=== PATIENT | male | born 1955 | race Caucasian/White ===

== ENCOUNTER 2019-01-09 09:45 | Emergency (ER) | payer OTHER ==
[2019-01-09 09:55] VITALS: BMI 34.0
--- NOTE | 2019-01-09 10:19 | PDOC ---
History of Present Illness <Valorie Auguste - Last Filed: 01/09/19 13:20> <Tana Espana - Last Filed: 01/09/19 17:09> - General Chief Complaint: Back Pain Stated Complaint: LWR BACK PAIN Time Seen by Provider: 01/09/19 10:15 Past History <Valorie Auguste - Last Filed: 01/09/19 13:20> - Past Medical History Cardiac Disorders: Yes (IRREGULAR HEART BEAT, PVC) COPD: No GI Disorders: Yes (GERD) HTN: Yes - Surgical History Appendectomy: Yes - Suicide/Smoking/Psychosocial Hx Smoking Status: No Smoking History: Never smoked Have you smoked in the past 12 months: No Number of Cigarettes Smoked Daily: 0 Hx Alcohol Use: No Drug/Substance Use Hx: No Substance Use Type: None Hx Substance Use Treatment: No <Tana Espana - Last Filed: 01/09/19 17:09> - Past Medical History Allergies/Adverse Reactions: Allergies Allergy/AdvReac Type Severity Reaction Status Date / Time No Known Allergies Allergy Verified 01/09/19 09:55 Home Medications: Ambulatory Orders Atenolol [Tenormin -] 25 mg PO BID 04/26/16 Ranitidine HCl [Zantac] 150 mg PO BID 04/26/16 Tamsulosin HCl [Flomax] 0.4 mg PO DAILY 04/26/16 Folic Acid 0.8 mg PO DAILY 01/09/19 Omeprazole 10 mg PO DAILY 01/09/19 Rosuvastatin Calcium [Crestor] 5 mg PO DAILY 01/09/19 *Physical Exam - Vital Signs Last Vital Signs Temp Pulse Resp BP Pulse Ox 98.4 F 56 L 18 160/98 96 01/09/19 13:00 01/09/19 13:00 01/09/19 09:51 01/09/19 13:00 01/09/19 13:00 <Valorie Auguste - Last Filed: 01/09/19 13:20> - Vital Signs Last Vital Signs Temp Pulse Resp BP Pulse Ox 98.2 F 67 18 139/76 97 01/09/19 09:51 01/09/19 09:51 01/09/19 09:51 01/09/19 09:51 01/09/19 09:51 <Tana Espana - Last Filed: 01/09/19 17:09> ED Treatment Course - LABORATORY CBC & Chemistry Diagram: 01/09/19 10:57 01/09/19 10:53 - ADDITIONAL ORDERS Additional order review: Laboratory Results 01/09/19 01/09/19 11:15 10:53 Sodium 142 Potassium 4.4 Chloride 107 Carbon Dioxide 28 Anion Gap 7 L BUN 13.8 Creatinine 1.2 Est GFR (CKD-EPI)AfAm 74.14 Est GFR (CKD-EPI)NonAf 63.97 Random Glucose 104 Calcium 9.1 Total Bilirubin 0.4 AST 18 ALT 34 Alkaline Phosphatase 73 Total Protein 7.3 Albumin 3.8 Urine Color Yellow Urine Appearance Clear Urine pH 7.0 Ur Specific [place] 1.012 Urine Protein Negative Urine Glucose (UA) Negative Urine Ketones Negative Urine Blood Negative Urine Nitrite Negative Urine Bilirubin Negative Urine Urobilinogen 0.2 Ur Leukocyte Esterase Negative 01/09/19 10:57 RBC 5.20 MCV 85.4 MCHC 33.6 RDW 13.4 MPV 8.2 Neutrophils % 72.5 Lymphocytes % 8.7 Monocytes % 5.8 Eosinophils % 12.4 H Basophils % 0.6 - Medications Given in the ED: ED Medications Discontinued Medications Generic Name Dose Route Start Last Admin Trade Name Albertoq PRN Reason Stop Dose Admin Acetaminophen 1,000 mg 01/09/19 10:51 01/09/19 11:31 Ofirmev Injection - IVPB 01/09/19 10:52 1,000 mg ONCE ONE Administration <Valorie Auguste - Last Filed: 01/09/19 13:20> - LABORATORY CBC & Chemistry Diagram: 01/09/19 10:57 01/09/19 10:53 <Tana Espana - Last Filed: 01/09/19 17:09> Medical Decision Making - Medical Decision Making 01/09/19 10:51 HPI 63 year old man with a history of BPH, Shipman's esophagus, PVCs who presents with constipation and constant R lower back pain radiating to the groin described as dull and achy rated 8-9/10 that started 4 days ago after a routine colonoscopy. The patient took colace yesterday without a bowel movement. He states the pain gets worse when he moves. The patient denies any fever, nausea, vomiting, abdominal pain, chest pain, shortness of breath. He notes he has some intermittent dysuria. He has no other complaints. PMHX: as in HPI PSHX: vocal cord polyp removal, appendectomy Meds: atenolol, crestor ROS GENERAL/CONSTITUTIONAL: No fever or chills. No weakness. HEAD, EYES, EARS, NOSE AND THROAT: No change in vision. No ear pain or discharge. No sore throat. CARDIOVASCULAR: No chest pain or shortness of breath RESPIRATORY: No cough, wheezing, or hemoptysis. GASTROINTESTINAL: No nausea, vomiting, diarrhea GENITOURINARY: No frequency, or change in urination. MUSCULOSKELETAL: No joint or muscle swelling or pain. No neck pain SKIN: No rash NEUROLOGIC: No headache, vertigo, loss of consciousness, or change in strength/ sensation. PE GENERAL: Awake, alert, and fully oriented, in no acute distress HEAD: No signs of trauma, normocephalic, atraumatic EYES: EOMI, sclera anicteric, conjunctiva clear ENT: oropharynx clear without exudates. Moist mucosa NECK: Normal ROM, supple LUNGS: No distress, speaks full sentences, clear to auscultation bilaterally HEART: Regular rate and rhythm, normal S1 and S2, no murmurs, rubs or gallops, peripheral pulses normal and equal bilaterally. ABDOMEN: Soft, nontender, normoactive bowel sounds. No guarding, no rebound. No masses BACK: R sided CVA tenderness EXTREMITIES : Normal inspection, Normal range of motion, no edema. No clubbing or cyanosis. NEUROLOGICAL: Cranial nerves II through XII grossly intact. Normal speech, no focal sensorimotor deficits SKIN: Warm, Dry, normal turgor, no rashes or lesions noted MDM 63 year old man with a history of BPH, Shipman's esophagus, PVCs who presents with constipation and constant R lower back pain radiating to the groin described as dull and achy rated 8-9/10 that started 4 days ago after a routine colonoscopy. DDX including but not limited to: constipation vs msk pain r/o nephrolithiasis r/o perforation W/U: - cbc, cmp, ua, ucx TX: - ivf, tylenol ED Course: labwork and imagign unremarkable patient D/C with bowel regimen Tana Espana, PGY2 Emergency Medicine <Tana Espana - Last Filed: 01/09/19 17:09> *DC/Admit/Observation/Transfer - Discharge Dispostion Decision to Admit order: No <Valorie Auguste - Last Filed: 01/09/19 13:20> <Tana Espana - Last Filed: 01/09/19 17:09> Diagnosis at time of Disposition: Constipation Qualifiers: Constipation type: unspecified constipation type Qualified Code(s): K59.00 - Constipation, unspecified - Discharge Dispostion Disposition: HOME Condition at time of disposition: Stable - Referrals Referrals: Damien Jones MD [Primary Care Provider] - - Patient Instructions Printed Discharge Instructions: High-Fiber Diet, DI for Constipation
[2019-01-09] MEDS ORDERED: ACETAMINOPHEN 1000 MG/100 ML VIAL (NON FORMULARY) IVPB ONE (10:51)
[2019-01-09] MEDS ORDERED: SODIUM CHLORIDE 1,000 ML IV SCH (11:00)
[2019-01-09] MEDS ORDERED: ACETAMINOPHEN INJECTION 100 ML IVPB ONE (11:16)
--- NOTE | 2019-01-09 11:23 | PDOC ---
Documentation entered by Ashtyn Sadler SCRIBE, acting as scribe for Valorie Auguste MD. Valorie Auguste MD: This documentation has been prepared by the scribe, Ashtyn Sadler SCRIBE, under my direction and personally reviewed by me in its entirety. I confirm that the documentation accurately reflects all work, treatment, procedures, and medical decision making performed by me. Attending Attestation - Resident Resident Name: Tana Espana - ED Attending Attestation I have performed the following: I have examined & evaluated the patient, The case was reviewed & discussed with the resident, I agree w/resident's findings & plan, Exceptions are as noted - HPI HPI: 01/09/19 11:10 The patient is a 63-year-old male, with a past medical history of HTN, GERD, Barretts esophagus, irregular heart rate with PVCs, who presents to the ED complaining of 4 days of constipation and RT lower back pain. He describes the pain as constant, dull/achy in sensation, 8/10 in severity, exacerbated with movement, and accompanied by intermittent dysuria. The patient states that the pain began after his routine colonoscopy on 01/05/19. He reports taking colace yesterday, but was unable to pass a bowel movement. The patient denies any fevers, chills, nausea, vomiting, diarrhea, or abdominal pain. Denies any chest pain, palpitations, or shortness of breath. Denies any weakness, dizziness, lightheadedness, or strength or sensory changes. Allergies: NKA PCP: Dr. Damien Jones - Physicial Exam PE: 01/09/19 11:11 GENERAL: Awake, alert, and fully oriented, in no acute distress HEAD: No signs of trauma EYES: PERRLA, EOMI, sclera anicteric, conjunctiva clear ENT: Auricles normal inspection, hearing grossly normal, nares patent, oropharynx clear without exudates. Moist mucosa NECK: Normal ROM, supple, no lymphadenopathy, JVD, or masses LUNGS: Breath sounds equal, clear to auscultation bilaterally. No wheezes, and no crackles HEART: Regular rate and rhythm, normal S1 and S2, no murmurs, rubs or gallops ABDOMEN: Soft, nontender, normoactive bowel sounds. No guarding, no rebound. No masses EXTREMITIES: Normal range of motion, no edema. No clubbing or cyanosis. No cords, erythema, or tenderness NEUROLOGICAL: Cranial nerves II through XII grossly intact. Normal speech, normal gait SKIN: Warm, Dry, normal turgor, no rashes or lesions noted - Medical Decision Making Pt with history of constipation presenting with constipation, low back pain, abdominal cramping. S/p recent colonoscopy, pain started the day after. CT obtained, no evidence of perf, no signs of infection, no signs of kidney stone. He has noted recent hard stools. Counseled him regarding high fiber diet, increasing intake of leafy greens. Given milk of magnesia in ED.
[2019-01-09 11:24] LABS: BASO % 0.6 % (0-2.0); EOS % 12.4 % (0-4.5); HEMATOCRIT 44.4 % (35.4-49); HEMOGLOBIN 14.9 GM/dL (11.7-16.9); LYMPH % 8.7 % (8-40); MCH 28.7 pg (25.7-33.7); MCHC 33.6 g/dl (32.0-35.9); MEAN CELL VOLUME 85.4 fl (80-96); MEAN PLT VOLUME 8.2 fl (7.5-11.1); MONO % 5.8 % (3.8-10.2); NEUT % 72.5 % (42.8-82.8); PLATELET COUNT 216 K/MM3 (134-434); RDW 13.4 % (11.9-15.9); WHITE BLOOD COUNT 6.2 K/mm3 (4.0-10.0)
[2019-01-09 11:49] LABS: ALBUMIN 3.8 g/dl (3.4-5.0); BILIRUBIN,TOTAL 0.4 mg/dL (0.2-1); BLOOD UREA NITROGEN 13.8 mg/dL (7-18); CALCIUM 9.1 mg/dL (8.5-10.1); CREATININE 1.2 mg/dL (0.55-1.3); POTASSIUM 4.4 mmol/L (3.5-5.1); TOT PROT 7.3 g/dl (6.4-8.2)
[2019-01-09 11:56] LABS: URINE APPEARANCE CLEAR; URINE BILIRUBIN NEGATIVE (NEGATIVE); URINE COLOR YELLOW; URINE GLUCOSE (UA) NEGATIVE (NEGATIVE); URINE KETONE NEGATIVE (NEGATIVE); URINE LEUK ESTERASE NEGATIVE (NEGATIVE); URINE NITRITE NEGATIVE (NEGATIVE); URINE PROTEIN NEGATIVE (NEGATIVE); URINE UROBILINOGEN 0.2 mg/dL (0.2-1.0)
[2019-01-09 13:02] VITALS: BP 160/98; PULSE 56; TEMP 98.4
[2019-01-09] MEDS ORDERED: MAGNESIUM HYDROX 2400MG/30ML ORAL SUSPENSION 30 ML CUP PO ONE (13:15)
[2019-01-09] MEDS ORDERED: MAG HYDROX/AL HYDROX/SIMETH 30 ML UNIT-DOSE CUP ONE (13:25)
== END 2019-01-09 13:50 | disposition home or self-care (01) ==
LOC: JER 09:45
PROC: 3E033NZ Introduction of Analgesics, Hypnotics, Sedatives into Peripheral Vein, Percutaneous Approach (ICD-10-PCS; principal; 2019-01-09)
DX: K59.00 Constipation, unspecified (principal); I10 Essential (primary) hypertension; K21.9 Gastro-esophageal reflux disease without esophagitis; I49.8 Other specified cardiac arrhythmias; Z87.19 Personal history of other diseases of the digestive system
CPT/HCPCS: 36415; 74176-TC; 80053; 81003; 85025; 87086; 99283-25; J0131; J7030

== ENCOUNTER 2020-10-11 04:26 | Day surgery (SDC) | payer OTHER, BC ==
[2020-10-10 11:25] VITALS: BMI 32.8
[2020-10-11 11:10] VITALS: BP 108/70; PULSE 70; TEMP 98.2
[2020-10-11] MEDS ORDERED: LACTATED RINGERS SOLUTION 1,000 ML IV SCH (11:45)
== END 2020-10-11 10:40 | disposition home or self-care (01) ==
LOC: JASU-ENDO 04:26
PROVIDERS: ATTEND Internal Medicine Gastroenterology
PROC: 0DB38ZX Excision of Lower Esophagus, Via Natural or Artificial Opening Endoscopic, Diagnostic (ICD-10-PCS; 2020-10-11)
PROC: 0DB78ZX Excision of Stomach, Pylorus, Via Natural or Artificial Opening Endoscopic, Diagnostic (ICD-10-PCS; 2020-10-11)
PROC: 0DJD8ZZ Inspection of Lower Intestinal Tract, Via Natural or Artificial Opening Endoscopic (ICD-10-PCS; principal; 2020-10-11 09:30)
DX: Z12.11 Encounter for screening for malignant neoplasm of colon (principal); K22.70 Barrett's esophagus without dysplasia; K29.50 Unspecified chronic gastritis without bleeding; K57.30 Diverticulosis of large intestine without perforation or abscess without bleeding; K64.8 Other hemorrhoids; K31.7 Polyp of stomach and duodenum; R19.4 Change in bowel habit
CPT/HCPCS: 43239; G0121; 88305-TC; 88342-TC

== ENCOUNTER 2021-07-05 09:08 | Emergency (ER) | payer OTHER, BC ==
[2021-07-05 09:16] VITALS: TEMP 97.9; BMI 35.1
[2021-07-05] MEDS ORDERED: SODIUM CHLORIDE 1,000 ML IV STA (10:17)
[2021-07-05] MEDS ORDERED: ACETAMINOPHEN 1000 MG/100 ML BAG IVPB ONE ×2 (10:17→15:46)
[2021-07-05] MEDS ORDERED: ONDANSETRON 4 MG/2 ML VIAL IVPUSH ONE (10:18)
[2021-07-05] MEDS ORDERED: FAMOTIDINE 20 MG/50 ML IVPB 20 MG/50 ML MG IVPB ONE ×2 (10:18→10:37)
[2021-07-05] MEDS ORDERED: ACETAMINOPHEN INJECTION 100 ML IVPB ONE ×2 (10:37→16:32)
[2021-07-05] MEDS ORDERED: ONDANSETRON 4 MG/2 ML VIAL ONE (10:37)
[2021-07-05 10:40] LABS: BASO % 1.5 % (0-2.0); EOS % 8.9 % (0-4.5); HEMATOCRIT 47.6 % (35.4-49); HEMOGLOBIN 15.5 GM/dL (11.7-16.9); LYMPH % 8.3 % (8-40); MCH 28.4 pg (25.7-33.7); MCHC 32.4 g/dl (32.0-35.9); MEAN CELL VOLUME 87.4 fl (80-96); MEAN PLT VOLUME 8.2 fl (7.5-11.1); MONO % 5.6 % (3.8-10.2); NEUT % 75.7 % (42.8-82.8); PLATELET COUNT 247 10^3/uL (134-434); RBC 5.45 M/mm3 (4.00-5.60); RDW 13.2 % (11.9-15.9); WHITE BLOOD COUNT 7.6 K/mm3 (4.0-10.0)
[2021-07-05 10:59] LABS: CHLORIDE 106 mmol/L (98-107); SODIUM 140 mmol/L (136-145)
[2021-07-05 11:01] LABS: CALCIUM 9.8 mg/dL (8.5-10.1)
[2021-07-05 11:02] LABS: ANION GAP 6 MMOL/L (8-16); BLOOD UREA NITROGEN 15.8 mg/dL (7-18); CO2 28 mmol/L (21-32); GLUCOSE,RANDOM 106 mg/dL (74-106); LIPASE 337 U/L (73-393)
[2021-07-05 11:05] LABS: CREATININE 1.4 mg/dL (0.55-1.3); SGOT/AST 13 U/L (15-37); SGPT/ALT 27 U/L (13-61)
[2021-07-05 11:06] LABS: TOT PROT 7.8 g/dl (6.4-8.2)
[2021-07-05 11:07] LABS: BILIRUBIN,TOTAL 0.4 mg/dL (0.2-1)
[2021-07-05 11:08] LABS: ALK PHOS 80 U/L (45-117)
[2021-07-05] MEDS ORDERED: morphine CARPU-JECT 4 MG/1 ML DISP.SYRIN IVPUSH ONE (15:33)
[2021-07-05 15:34] LABS: URINE APPEARANCE CLEAR; URINE BILIRUBIN NEGATIVE (NEGATIVE); URINE COLOR YELLOW; URINE GLUCOSE (UA) NEGATIVE (NEGATIVE); URINE KETONE NEGATIVE (NEGATIVE)
[2021-07-05 15:35] LABS: PH,URINE 5.5 (5.0-8.0); URINE LEUK ESTERASE NEGATIVE (NEGATIVE); URINE NITRITE NEGATIVE (NEGATIVE); URINE PROTEIN NEGATIVE (NEGATIVE); URINE UROBILINOGEN 0.2 mg/dL (0.2-1.0)
[2021-07-05 17:28] VITALS: BP 174/79; PULSE 60
== END 2021-07-05 17:48 | disposition home or self-care (01) ==
LOC: JER 09:08
PROC: 3E0333Z Introduction of Anti-inflammatory into Peripheral Vein, Percutaneous Approach (ICD-10-PCS; principal; 2021-07-05)
PROC: 3E0333Z Introduction of Anti-inflammatory into Peripheral Vein, Percutaneous Approach (ICD-10-PCS; 2021-07-05)
PROC: 3E033GC Introduction of Other Therapeutic Substance into Peripheral Vein, Percutaneous Approach (ICD-10-PCS; 2021-07-05)
PROC: 3E0337Z Introduction of Electrolytic and Water Balance Substance into Peripheral Vein, Percutaneous Approach (ICD-10-PCS; 2021-07-05)
DX: R10.11 Right upper quadrant pain (principal)
CPT/HCPCS: 36415; 71275-TC; 74174-TC; 76705-TC; 80053; 81003; 82550; 82553; 83605; 83690; 84484; 85025; 87086; 93005; 93010; 99285-25; J0131

== ENCOUNTER 2022-01-07 09:03 | Inpatient (IN) | payer OTHER, BC ==
[2022-01-07 10:08] LABS: BASO % 0.3 % (0-2.0); EOS % 11.5 % (0-4.5); HEMATOCRIT 46.7 % (35.4-49); HEMOGLOBIN 15.4 GM/dL (11.7-16.9); LYMPH % 9.4 % (8-40); MCH 28.2 pg (25.7-33.7); MEAN CELL VOLUME 85.6 fl (80-96); MEAN PLT VOLUME 8.2 fl (7.5-11.1); MONO % 5.5 % (3.8-10.2); NEUT % 73.3 % (42.8-82.8); PLATELET COUNT 212 10^3/uL (134-434); RBC 5.45 M/mm3 (4.00-5.60); WHITE BLOOD COUNT 6.3 K/mm3 (4.0-10.0)
[2022-01-07 10:31] LABS: ALBUMIN 4.1 g/dl (3.4-5.0); BLOOD UREA NITROGEN 23.6 mg/dL (7-18); CALCIUM 9.1 mg/dL (8.5-10.1)
[2022-01-07 10:33] LABS: BILIRUBIN,TOTAL 0.4 mg/dL (0.2-1); CREATININE 1.4 mg/dL (0.55-1.3); TOT PROT 7.7 g/dl (6.4-8.2)
[2022-01-07] MEDS ORDERED: ACETAMINOPHEN 325 MG TABLET (FP) PO PRN (14:00)
[2022-01-07 15:23] LABS: EPI CELLS 2 /uL (0-25.1); HYALINE CASTS 0 /uL (0-3.1); PH,URINE 5.5 (5.0-8.0); URINE APPEARANCE CLEAR; URINE BACTERIA 0 /uL (0-1359); URINE BILIRUBIN NEGATIVE (NEGATIVE); URINE COLOR YELLOW; URINE GLUCOSE (UA) NEGATIVE (NEGATIVE); URINE KETONE NEGATIVE (NEGATIVE); URINE LEUK ESTERASE NEGATIVE (NEGATIVE); URINE NITRITE NEGATIVE (NEGATIVE); URINE PROTEIN NEGATIVE (NEGATIVE); URINE RBC 22 /uL (0-23.9); URINE UROBILINOGEN 0.2 mg/dL (0.2-1.0); URINE WBC 2 /uL (0-25.8)
[2022-01-07 16:28] LABS: N-TERMINAL BNP 157.9 pg/ml (5-125)
[2022-01-07] MEDS ORDERED: METOPROLOL TARTRATE 25 MG TABLET (FP) ONE (22:12)
[2022-01-07] MEDS: LATANOPROST 0.005% OPHTH SOLN 2.5ML BOTTLE OU SCH (22:19)
[2022-01-07] MEDS: METOPROLOL TARTRATE 25 MG TABLET (FP) PO SCH (22:50)
[2022-01-08] MEDS ORDERED: MELATONIN 5 MG TABLETS PO ONE (01:29)
[2022-01-08 03:37] VITALS: BMI 34.3
[2022-01-08 07:43] LABS: BASO % 0.6 % (0-2.0); EOS % 11.6 % (0-4.5); HEMOGLOBIN 14.4 GM/dL (11.7-16.9); LYMPH % 11.1 % (8-40); MCH 28.5 pg (25.7-33.7); MCHC 33.5 g/dl (32.0-35.9); MEAN CELL VOLUME 85.1 fl (80-96); MEAN PLT VOLUME 8.5 fl (7.5-11.1); MONO % 6.8 % (3.8-10.2); NEUT % 69.9 % (42.8-82.8); PLATELET COUNT 204 10^3/uL (134-434); RBC 5.06 M/mm3 (4.00-5.60); RDW 13.6 % (11.9-15.9); WHITE BLOOD COUNT 7.2 K/mm3 (4.0-10.0)
[2022-01-08 08:01] LABS: CALCIUM 8.7 mg/dL (8.5-10.1)
[2022-01-08 08:02] LABS: ALBUMIN 3.7 g/dl (3.4-5.0); BLOOD UREA NITROGEN 22.6 mg/dL (7-18); MAGNESIUM 2.2 mg/dL (1.8-2.4)
[2022-01-08 08:03] LABS: CREATININE 1.5 mg/dL (0.55-1.3)
[2022-01-08 08:04] LABS: PHOSPHOROUS 3.4 mg/dL (2.5-4.9)
[2022-01-08 08:05] LABS: BILIRUBIN,TOTAL 0.4 mg/dL (0.2-1); TOT PROT 6.9 g/dl (6.4-8.2)
[2022-01-08] MEDS ORDERED: REGADENOSON 0.4 MG/5 ML PRE-FILLED SYRINGE IVPUSH ONE ×2 (11:22→11:30)
[2022-01-08] MEDS: ENOXAPARIN NA (PORCINE) 40 MG/0.4 ML DISP.SYRIN SQ SCH (12:49)
[2022-01-08] MEDS: LISINOPRIL 10 MG TABLET PO SCH ×2 (12:50→13:07)
[2022-01-08] MEDS: TAMSULOSIN HCL 0.4 MG CAP PO SCH (12:50)
[2022-01-08] MEDS: PANTOPRAZOLE 40 MG TABLET PO SCH (12:50)
[2022-01-08] MEDS ORDERED: ASPIRIN 325 MG ENTERIC COATED TABLET (FP) PO ONE (14:29)
[2022-01-08] MEDS ORDERED: ASPIRIN 325 MG TABLET PO ONE (16:30)
[2022-01-08] MEDS ORDERED: MELATONIN 5 MG TABLETS PO PRN (16:52)
[2022-01-08] MEDS ORDERED: ATORVASTATIN CA 10 MG TABLET (FP) PO SCH (22:00)
[2022-01-08] MEDS: METOPROLOL TARTRATE 25 MG TABLET (FP) PO SCH (23:13)
[2022-01-08] MEDS: LATANOPROST 0.005% OPHTH SOLN 2.5ML BOTTLE OU SCH (23:14)
[2022-01-09] MEDS: TAMSULOSIN HCL 0.4 MG CAP PO SCH (08:39)
[2022-01-09 08:57] VITALS: BP 139/86; PULSE 74; RESP 16; TEMP 98.3
[2022-01-09] MEDS: PANTOPRAZOLE 40 MG TABLET PO SCH (09:42)
[2022-01-09] MEDS: METOPROLOL TARTRATE 25 MG TABLET (FP) PO SCH (09:43)
[2022-01-09] MEDS: ENOXAPARIN NA (PORCINE) 40 MG/0.4 ML DISP.SYRIN SQ SCH (09:43)
[2022-01-09] MEDS: LISINOPRIL 10 MG TABLET PO SCH (09:43)
[2022-01-09] MEDS ORDERED: ASPIRIN COATED 81 MG TABLET.EC PO SCH (10:00)
[2022-01-09 13:17] LABS: CALCIUM 9.6 mg/dL (8.5-10.1)
[2022-01-09 13:18] LABS: BLOOD UREA NITROGEN 18.8 mg/dL (7-18)
[2022-01-09 13:19] LABS: INR 1.06 (0.83-1.09); PROTHROMBIN TIME (PATIENT) 12.2 SEC (9.7-13.0)
[2022-01-09 13:21] LABS: CREATININE 1.4 mg/dL (0.55-1.3)
[2022-01-09] MEDS ORDERED: TAMSULOSIN HCL 0.4 MG CAP PO SCH (22:00)
== END 2022-01-09 14:14 | disposition short-term general hospital (02) | DRG 311 ==
LOC: JER 09:03 → JERBED 10:58 → OBSVTOIN 15:18 → J4W 01-08 01:04
PROVIDERS: ADMIT Internal Medicine; ATTEND Internal Medicine
DX: I24.9 Acute ischemic heart disease, unspecified (principal); I25.10 Atherosclerotic heart disease of native coronary artery without angina pectoris; I12.9 Hypertensive chronic kidney disease with stage 1 through stage 4 chronic kidney disease, or unspecified chronic kidney disease; K21.9 Gastro-esophageal reflux disease without esophagitis; K22.70 Barrett's esophagus without dysplasia; E66.9 Obesity, unspecified; Z68.34 Body mass index [BMI] 34.0-34.9, adult; E78.00 Pure hypercholesterolemia, unspecified; N18.30 Chronic kidney disease, stage 3 unspecified; N40.0 Benign prostatic hyperplasia without lower urinary tract symptoms; I44.0 Atrioventricular block, first degree; R73.03 Prediabetes
CPT/HCPCS: 36415; 71045-TC-FY; 71046-TC-FY; 76775-TC; 78452-TC; 80048; 80053; 80061; 81003; 82436; 82570; 83036; 83735; 83880; 84100; 84133; 84156; 84300; 84443; 84484; 84540; 85025; 85610; 93005; 93010; 93017; 93306-TC; 99285-25; A9502; C9803-CS; G0378; J2785; U0003; U0005

== ENCOUNTER 2022-04-03 04:50 | Day surgery (SDC) | payer OTHER, BC ==
[2022-04-01 14:36] VITALS: BMI 35.4
[2022-04-03 16:34] VITALS: BP 140/90; PULSE 88; RESP 18; TEMP 98
== END 2022-04-03 16:30 | disposition home or self-care (01) ==
LOC: JASU-ENDO 04:50
PROVIDERS: ATTEND Internal Medicine Gastroenterology
PROC: 0DB78ZX Excision of Stomach, Pylorus, Via Natural or Artificial Opening Endoscopic, Diagnostic (ICD-10-PCS; 2022-04-03)
PROC: 0DB98ZX Excision of Duodenum, Via Natural or Artificial Opening Endoscopic, Diagnostic (ICD-10-PCS; 2022-04-03)
PROC: 0DB68ZX Excision of Stomach, Via Natural or Artificial Opening Endoscopic, Diagnostic (ICD-10-PCS; principal; 2022-04-03 13:00)
DX: K21.9 Gastro-esophageal reflux disease without esophagitis (principal); K29.50 Unspecified chronic gastritis without bleeding; K31.7 Polyp of stomach and duodenum
CPT/HCPCS: 88305-TC; 88342-TC

== ENCOUNTER 2022-07-19 07:42 | Observation (INO) | payer OTHER, BC ==
[2022-07-19 08:10] VITALS: RESP 17; TEMP 98; BMI 36.0
[2022-07-19] MEDS ORDERED: MAG HYDROX/AL HYDROX/SIMETH 30 ML UNIT-DOSE CUP PO ONE (08:32)
[2022-07-19] MEDS ORDERED: METOCLOPRAMIDE HCL INJECTION 10 MG/2 ML VIAL IVPUSH ONE (08:33)
[2022-07-19] MEDS ORDERED: FAMOTIDINE 20 MG/50 ML IVPB 20 MG/50 ML MG IVPB ONE ×2 (08:34→08:49)
[2022-07-19] MEDS ORDERED: ACETAMINOPHEN 500 MG TABLET (FP) PO ONE (08:44)
[2022-07-19] MEDS ORDERED: METOCLOPRAMIDE HCL INJECTION 10 MG/2 ML VIAL ONE (08:47)
[2022-07-19] MEDS ORDERED: MAG HYDROX/AL HYDROX/SIMETH 30 ML UNIT-DOSE CUP ONE (08:48)
[2022-07-19 08:58] LABS: BASO % 0.3 % (0-2.0); EOS % 10.6 % (0-4.5); HEMATOCRIT 45.7 % (35.4-49); HEMOGLOBIN 15.2 GM/dL (11.7-16.9); LYMPH % 9.4 % (8-40); MCH 28.8 pg (25.7-33.7); MCHC 33.3 g/dl (32.0-35.9); MEAN CELL VOLUME 86.4 fl (80-96); MEAN PLT VOLUME 7.7 fl (7.5-11.1); MONO % 5.7 % (3.8-10.2); PLATELET COUNT 234 10^3/uL (134-434); RBC 5.29 M/mm3 (4.00-5.60); RDW 14.4 % (11.9-15.9); WHITE BLOOD COUNT 6.2 K/mm3 (4.0-10.0)
[2022-07-19 09:04] LABS: INR 1.05 (0.83-1.09); PROTHROMBIN TIME (PATIENT) 12.2 SEC (9.7-13.0)
[2022-07-19] MEDS ORDERED: ACETAMINOPHEN 325 MG TABLET (FP) ONE (09:04)
[2022-07-19 09:07] LABS: ACTIVATED PTT 29.6 SECONDS (25.2-36.5)
[2022-07-19] MEDS ORDERED: ACETAMINOPHEN 325 MG TABLET (FP) PO ONE (09:13)
[2022-07-19 09:21] LABS: CALCIUM 9.3 mg/dL (8.5-10.1)
[2022-07-19 09:22] LABS: ALBUMIN 3.7 g/dl (3.4-5.0); BLOOD UREA NITROGEN 21.4 mg/dL (7-18)
[2022-07-19 09:25] LABS: CREATININE 1.5 mg/dL (0.55-1.3)
[2022-07-19 09:26] LABS: BILIRUBIN,TOTAL 0.4 mg/dL (0.2-1); TOT PROT 7.6 g/dl (6.4-8.2)
[2022-07-19] MEDS ORDERED: NITROGLYCERIN SUBLINGUAL 1/150 0.4 MG TAB SL PRN (09:55)
[2022-07-19] MEDS ORDERED: ASPIRIN 81 MG CHEWABLE TABLETS PO SCH (10:00)
[2022-07-19 10:58] VITALS: BP 123/57; PULSE 60
[2022-07-19] MEDS ORDERED: ATORVASTATIN CA 80 MG TABLET (FP) PO SCH (22:00)
[2022-07-20] MEDS ORDERED: metoPROLOL SUCCINATE 25 MG TAB.SR.24H (FP) PO SCH (10:00)
== END 2022-07-19 11:24 | disposition home or self-care (01) ==
LOC: JER 07:42 → JERBED 09:36
PROVIDERS: ADMIT Internal Medicine; ATTEND Internal Medicine
PROC: 3E033GC Introduction of Other Therapeutic Substance into Peripheral Vein, Percutaneous Approach (ICD-10-PCS; principal; 2022-07-19)
DX: I12.9 Hypertensive chronic kidney disease with stage 1 through stage 4 chronic kidney disease, or unspecified chronic kidney disease (principal); E78.5 Hyperlipidemia, unspecified; N18.9 Chronic kidney disease, unspecified; K22.70 Barrett's esophagus without dysplasia; R07.9 Chest pain, unspecified
CPT/HCPCS: 0241U-QW; 36415; 70450-TC; 71046-TC-FY; 80053; 83690; 84484; 85025; 85610; 85730; 93005; 93010; 96365; 96375; 99285-25; G0378

== ENCOUNTER 2023-02-03 04:31 | Day surgery (SDC) | payer OTHER, BC ==
[2023-02-02 10:38] VITALS: BMI 36.0
[2023-02-03] MEDS ORDERED: LIDOCAINE HCL 1% PRESERVATIVE FREE - 30ML VIAL INF ONE (13:01)
[2023-02-03] MEDS ORDERED: BUPIVACAINE HCL/PF 0.75% 10 ML VIAL NR ONE (13:01)
[2023-02-03 13:36] VITALS: RESP 18
[2023-02-03] MEDS ORDERED: ACETAMINOPHEN 500 MG TABLET (FP) PO PRN (13:52)
[2023-02-03 13:54] VITALS: BP 134/74; PULSE 77; TEMP 98
== END 2023-02-03 13:55 | disposition home or self-care (01) ==
LOC: JASU-SURG 04:31
PROVIDERS: ATTEND Pain Medicine Pain Medicine
PROC: 3E0T33Z Introduction of Anti-inflammatory into Peripheral Nerves and Plexi, Percutaneous Approach (ICD-10-PCS; 2023-02-03)
PROC: 3E0T3BZ Introduction of Anesthetic Agent into Peripheral Nerves and Plexi, Percutaneous Approach (ICD-10-PCS; principal; 2023-02-03 14:00)
DX: M47.816 Spondylosis without myelopathy or radiculopathy, lumbar region (principal)
CPT/HCPCS: 76000-TC-FY